=== PATIENT | female | born 1975 | race American Indian/Alaskan Native ===

== ENCOUNTER 2019-04-25 23:44 | Emergency (ER) | payer SELFPAY ==
[~2019-04-25] VITALS: Ht 162.6 cm; Wt 62.0 kg
[2019-04-26] MEDS ORDERED: ACETAMINOPHEN 325MG TABLET PO ONE (01:45)
[2019-04-26 04:16] VITALS: BP 110/76
== END 2019-04-26 04:14 | disposition home or self-care (01) ==
LOC: EDBD 23:44 → ER 23:44
DX: S62.002A Unspecified fracture of navicular [scaphoid] bone of left wrist, initial encounter for closed fracture (principal); Y08.89XA Assault by other specified means, initial encounter; Y93.89 Activity, other specified; Y92.89 Other specified places as the place of occurrence of the external cause; Y99.8 Other external cause status
CPT/HCPCS: 29125; 70486; 73110; 73130; 99284